=== PATIENT | female | born 1980 | race Caucasian/White ===

== ENCOUNTER 2019-04-19 06:47 | Emergency (ER) | payer MEDICAID ==
[~2019-04-19] VITALS: Ht 152.4 cm; Wt 72.0 kg
[2019-04-19] MEDS ORDERED: FLUORESCEIN SODIUM 1MG/STRIP RIGHTEYE ONE (07:30)
[2019-04-19] MEDS ORDERED: TETRACAINE 0.5% OPHTH DROPS 4ML RIGHTEYE ONE (07:30)
[2019-04-19] MEDS ORDERED: KETOROLAC 30MG/ML VIAL IM ONE (07:30)
[2019-04-19 08:18] VITALS: BP 110/82
== END 2019-04-19 08:18 | disposition home or self-care (01) ==
LOC: ER 07:23
DX: H57.89 Other specified disorders of eye and adnexa (principal); R51 Headache
CPT/HCPCS: 96372; 99283; J1885